=== PATIENT | male | born 1945 | race Caucasian/White ===

== ENCOUNTER 2018-03-25 05:45 | Inpatient (IN) ==
[2018-03-25 06:00] VITALS: BMI 30.2
[2018-03-25] MEDS ORDERED: BUPIVACAINE 0.5%/EPI 1:200,000 INJ 30ml SDV ONE (06:25)
[2018-03-25] MEDS: LR 1,000 ML IV SCH ×3 (06:30→12:55)
[2018-03-25] MEDS ORDERED: ONDANSETRON 4 MG/2 ML INJECTION IVP ONE (06:57)
[2018-03-25] MEDS ORDERED: SCOPOLAMINE 1mg/3 days PATCH (Eq. 1.5 Patch) TD ONE (06:57)
--- NOTE | 2018-03-25 07:01 | Anesthesia Preoperative Report ---
Anesthesia Preoperative Record - Date and Time Date: 03/25/18 Preoperative Diagnosis: Intestinal anastomotic leak/history colorectal CA NPO Since Date: 03/24/18 NPO Since Time: 00:00 Allergies/Adverse Reactions: Allergies Allergy/AdvReac Type Severity Reaction Status Date / Time No Known Allergies Allergy Verified 03/25/18 06:11 - Vital Signs Vital Signs: Temperature 98.4 F 03/25/18 05:58 Pulse Rate 91 03/25/18 06:19 Respiratory Rate 16 03/25/18 05:58 Blood Pressure 135/76 03/25/18 05:58 Pulse Oximetry 97 03/25/18 05:58 Height and Weight: Height 1.83 m Weight 101.3 kg Body Mass Index 30.2 - Medications Inpatient Medications: Current Medications Heparin Sodium (Porcine) (Heparin Sq) 5,000 units SQ O ONE Stop: 03/25/18 20:00 Ertapenem 1 g/ Sodium Chloride 100 mls @ 200 mls/hr IV PREOP ONE Stop: 03/25/18 20:28 Lactated Ringer's (Lactated Ringers) 1,000 mls @ 50 mls/hr IV .Q20H CRISSY Last Admin: 03/25/18 06:30 Dose: 50 mls/hr Lidocaine HCl (Xylocaine-Mpf 1% Vial) 2 mg ID O ONE Stop: 03/25/18 20:00 Last Admin: 03/25/18 06:30 Dose: 1 mg Ondansetron HCl (Zofran) 4 mg IVP O ONE Stop: 03/25/18 06:58 Last Admin: 03/25/18 06:59 Dose: 4 mg Scopolamine (Transderm-Scop Patch) 1 mg TD O ONE Stop: 03/25/18 06:58 Sodium Chloride (Iv Flush) 10 ml IV PRN PRN PRN Reason: Flushing Home Medications: Home Medications Medication Instructions Recorded Confirmed Type Diphenoxylate Hcl/Atrop Sulf 1 udtab PO PRN PRN #0 11/20/11 03/25/18 History (Lomotil) Advil (Ibuprofen) 200 mg tablet 200 mg PO TID PRN tab 12/05/17 03/25/18 History acetylcarnitine HCl 400 mg-alpha 1 cap PO BID 12/05/17 03/25/18 History lipoic acid 200 mg capsule Cranberry Fruit [Cranberry] 400 mg PO BID 12/13/17 03/25/18 History Pravastatin [Pravachol] 40 mg PO HS 12/13/17 03/25/18 History Timolol [Betimol] 5 ml EACH EYE DAILY 12/13/17 03/25/18 History Vitamin B Complex [Balanced B-50] 1 each PO DAILY 12/13/17 03/25/18 History erythromycin 500 mg tablet 1,000 mg PO TID #6 tab 02/12/18 03/25/18 Rx Acetaminophen [Tylenol] 1,000 mg PO TID 03/25/18 03/25/18 History Aspirin Chewable [ASA] 81 mg PO DAILY 03/25/18 03/25/18 History Is Patient on Beta Nathanael?: No - Medical History Respiratory: Reports: Pneumonia (as an ) Cardiovascular: Reports: Hypertension Gastrointestional: Reports: Other (COLON CANCER) Renal/Endocrine: Reports: Diabetes Mellitus Type 2, Thyroid Disease Other History: Reports: Chemotherapy (7 years ago), Cancer (COLON), Other ( radiation/7 years ago) - Surgical History Cardiac Surgeries/Treatments: Reports: Cardiac Catheterization (2011 DR CARRILLO) , Other (PAC PLACEMENT 2010) GI Surgery/Treatments: Reports: Colon Resection, Colonoscopy, Other (ILEOSTOMY TAKE DOWN 2010) Reproductive Surgery/Treatment: Reports: Vasectomy Anesthesia Reactions: None Hx Family Anesthesia Reaction: No History of Motion Sickness: No - Social History Smoking Status: Former smoker Hx Chewing Tobacco Use: No Second Hand Exposure: No Substance Use Type: does not use Alcohol Intake Frequency: does not drink - Pertinent Findings Laboratory: CBC and BMP 03/25/18 06:14 03/25/18 06:14 BMP 03/25/18 06:14 Sodium 141 Potassium 3.9 Chloride 104 Carbon Dioxide 23 BUN 22.0 H Creatinine 1.1 Glucose 135 H Calcium 9.6 Liver Function 03/25/18 Range/Units 06:14 Total Bilirubin 0.80 (0.20-1.30) MG/DL AST 27 (17-59) U/L ALT 22 (1-50) U/L Alkaline Phosphatase 87 (38-126) U/L Albumin 4.8 (3.5-5.0) g/dL EKG: Sinus Rhythm - Physical Exam Respiratory Exam: Present: lungs clear, bilateral breath sounds equal Cardiovascular Exam: Present: regular rate and rhythm - Airway Assessment Mallampati Score: II TMD: 3 Fingerbreadths Neck Extension: fair Overall Assessment: no airway concerns - ASA ASA Score: 3 - Plan Anesthesia: General TIVA, General Inhalation Gases - Discussion Discussion: Discussed risks/options/alternatives of anesthesia and questions answered. Patient consents. Nursing pain assessment noted. Present for Discussion: family member Attestation Statement: Prior to the delivery of any anesthetic medication, I examined the patient, developed the plan, obtained the patient's consent and discussed the risk and benefits of the procedure with the patient/guardian. - Additional Information Seen by Anesthesia: Yes
[2018-03-25] MEDS ORDERED: FentaNYL 250 MCG/5 ML INJECTION ONE (07:19)
[2018-03-25] MEDS ORDERED: VECURONIUM 10 MG/10 ML VIAL IV ONE (07:20)
[2018-03-25] MEDS ORDERED: SUCCINYLCHOLINE 20mg/mL 10mL INJECTION ONE (07:20)
[2018-03-25] MEDS ORDERED: PROPOFOL 20 ML ONE (07:20)
[2018-03-25] MEDS ORDERED: LACRI-LUBE EYE OINT 3.5gm ONE (07:22)
[2018-03-25] MEDS ORDERED: ONDANSETRON 4 MG/2 ML INJECTION ONE (07:45)
[2018-03-25] MEDS ORDERED: DEXAMETHASONE 4 MG/ML INJECTION ONE (07:45)
[2018-03-25] MEDS ORDERED: DiphenhydrAMINE 50 MG/ML INJECTION ONE (07:46)
[2018-03-25] MEDS ORDERED: BUPIVACAINE 0.5%/EPI 1:200,000 INJ 30ml SDV ID ONE (08:12)
[2018-03-25] MEDS ORDERED: HYDROMORPHONE 2 MG/ML INJECTION ONE (08:45)
[2018-03-25] MEDS ORDERED: METOCLOPRAMIDE 10mg/2ml INJECTION IVP PRN ×2 (10:29→13:45)
[2018-03-25] MEDS ORDERED: SUGAMMADEX 200mg/2ml INJECTION IVP ONE (10:32)
[2018-03-25] MEDS ORDERED: INDOCYANINE GREEN 25mg INJECTION IVP ONE (10:46)
[2018-03-25] MEDS ORDERED: INDOCYANINE GREEN 25mg INJECTION ONE (10:48)
--- NOTE | 2018-03-25 12:23 | General Surgery Procedure Note ---
Date of Procedure: 03/25/18 Surgeon: Shane Scanning Coordinator: Rahul Black APRN Postoperative Diagnosis: Colorarectal anastomosis leak with walled off abscess, fecal inicontinece, history of radiation to rectal area. Procedure: Robotic creation of end colostomy Estimated Blood Loss: See Anesthesia Record.
[2018-03-25] MEDS: HYDROMORPHONE 2 MG/ML INJECTION IVP PRN ×4 (12:33→13:08)
[2018-03-25] MEDS ORDERED: FUROSEMIDE 20 MG/2 ML INJECTION IVP ONE (12:46)
[2018-03-25] MEDS ORDERED: FUROSEMIDE 40 MG/4 ML INJECTION IVP ONE (12:49)
[2018-03-25] MEDS ORDERED: NS 1,000 ML IV SCH (13:45)
[2018-03-25] MEDS ORDERED: ONDANSETRON ODT 4 MG TABLET PO PRN (13:45)
[2018-03-25] MEDS ORDERED: ONDANSETRON 4 MG/2 ML INJECTION IVP PRN (13:45)
[2018-03-25] MEDS ORDERED: HYDROMORPHONE 2 MG/ML INJECTION IVP PRN (13:45)
[2018-03-25] MEDS ORDERED: ERTAPENEM 1 G in NS 100 ML IV SCH (13:45)
[2018-03-25] MEDS: MORPHINE PCA 30 MG/30 ML SYRINGE IV PRN (14:00)
--- NOTE | 2018-03-25 14:02 | Anesthesia Postoperative Note ---
- Date and Time Date: 03/25/18 Time: 14:00 - Status Patient Participated in Evaluation: Patient Participated in Person Vital Signs: Temperature 97.6 F 03/25/18 13:34 Pulse Rate 69 03/25/18 13:30 Respiratory Rate 03/25/18 13:30 Blood Pressure 157/74 H 03/25/18 13:30 Pulse Oximetry 97 03/25/18 13:30 Respiratory Function: Airway Patent, Regular Respirations Cardiovascular Function: Regular Pulse Mental Status: Alert and Oriented Pain Intensity: 4 Hydration: IV Infusing Nausea/Vomiting: None Complications During Recover: None Apparent - Follow-Up Instructions Instructions: Per Surgeon
--- NOTE | 2018-03-25 17:43 | Operative Note ---
DATE OF SURGERY 03/25/2018 PREOPERATIVE DIAGNOSES Placement of bilateral ureteral stents. POSTOPERATIVE DIAGNOSIS Placement of bilateral ureteral stents. PROCEDURE PERFORMED Cystoscopy with placement of bilateral ureteral stents. PRIMARY SURGEON Stephen Holley MD INDICATIONS FOR PROCEDURE This is a patient who is undergoing a colostomy today with Dr. Lynn. I was asked to place bilateral lighted ureteral stents in order to aid in identification of the ureters during surgery. DESCRIPTION OF PROCEDURE When I got into the room the patient was already in the dorsal lithotomy position and he was prepped and draped in the usual fashion. At this time a formal timeout was done. All persons in the room were in agreement. I began the procedure by introducing a rigid cystoscope inside the bladder. Upon entry into the bladder I identified the two UOs which was orthotopic in position. I began by placing a lighted ureteral stent in the left UO. This was done over a tensor wire. The stent was advanced to the appropriate wisam. The rigid cystoscope was then removed. I then reintroduced the cystoscope and placed the stent in the right UO in a similar fashion. The stent was also advanced to the two line wisam in a similar fashion. Once the two stents were in place I placed a 14-Fr Chaney in the bladder and tied it to the two stents using silk suture. The stents were then generated to produce the light. At this point care of the patient was handed back to Dr. Lynn. VISHAL
[2018-03-25] MEDS: NS with KCL 20 mEq 1,000 ML IV SCH (17:59)
[2018-03-25] MEDS: INSULIN REGULAR, HUMAN 100 UNIT/ML INJECTION SQ PRN (18:17)
--- NOTE | 2018-03-25 19:42 | Operative Note ---
DATE OF SERVICE 03/25/2018 SURGEON Diony Lynn MD REINFORCED CONCRETE INSPECTOR Rahul Black APRN PREOPERATIVE DIAGNOSIS Personal history for rectal cancer, status post low anterior resection with recent development of extraperitoneal anastomotic leak. POSTOPERATIVE DIAGNOSIS Personal history for rectal cancer, status post low anterior resection with recent development of extraperitoneal anastomotic leak. PROCEDURE Robotic-assisted laparoscopic partial colonic resection with creation of Rosalba's pouch and end colostomy. ANESTHESIA General endotracheal anesthesia. EBL/FLUIDS Please see chart. BRIEF HISTORY/INDICATIONS Mr. Hopper is a 72-year-old gentleman who several years ago I had performed a low anterior resection upon as a result of a rectal cancer. He did undergo chemoradiation. Unfortunately, the patient has developed a delayed extraperitoneal anastomotic leak. He has been experiencing fairly significant pain involving his sacrum and coccyx region. He also has been having increasing drainage from the anal verge. He did undergo a repeat colonoscopy recently and was found to have an anastomotic leak. Multiple biopsies were obtained from the site of this leak as well as from within the presacral space for one could see marked inflammatory changes. Fortunately, there was no evidence for any underlying neoplastic process/malignancy. Given the fact that this was an extraperitoneal leak we initially elected to be conservative in nature. The patient, however, continued to have increasing symptoms and therefore surgical intervention was recommended. The patient presents today to undergo fecal diversion with creation of a Rosalba's pouch and end colostomy. For completeness please refer to multiple notes included in the patient's chart as well as within his electronic medical record. FINDINGS Upon laparoscopy the liver was smooth and without nodularities. Peritoneal surfaces, small bowel, omentum which was visualized was within normal limits. One was able in a robotic-assisted laparoscopic approach to create a Rosalba's pouch just above his prior anastomotic leak and create an end colostomy. NARRATIVE OF PROCEDURE After informed consent was obtained the patient was brought to the operative suite and placed on the table in supine fashion. The abdomen was then prepped and draped in sterile fashion. Formal timeout was then completed. The patient did have lighted ureteral stents placed preoperatively. This portion of the procedure will be dictated by Dr. Holley. Once time out had been completed and the abdomen was prepped and draped in sterile fashion, attention then focused towards initiation of the surgery. First, 0.25% Marcaine with epinephrine was injected just below the left subcostal margin along the mid axillary line. A 4-5 mm incision was then made through the area of analgesia. A Veress needle was introduced through the incision and into the peritoneal cavity. Pneumoperitoneum was established to a patient pressure of 15 mmHg utilizing carbon dioxide. Next, a 12-mm camera port was then placed about 6 cm cephalad and about 4 cm to the right of midline within the right upper quadrant. First, 0.25% Marcaine with epinephrine was injected at this location. A 2-cm incision was then made through the area of analgesia. A 12- mm port was advanced through the incision through the abdominal wall and into the peritoneal cavity. Laparoscope was then placed through the port. There were some omental adhesions present along his prior midline incision. Fortunately, there was no bowel, however, adhered to the anterior abdominal wall. A 5-mm port was initially placed in the right lower quadrant as well as an 8-mm da Leslie port within the epigastric region. Each port site was preinjected with 0.25% Marcaine with epinephrine and again placed under direct visualization. Adhesions along his prior midline incision were then taken down bluntly as well as with sharp dissection laparoscopically. Next, the 5-mm port within the right lower quadrant was then replaced with a da Leslie stapler port. An additional 8-mm da Leslie port was then placed along the left lateral abdominal wall. A 5-mm AirSeal assist port was also placed within the right upper quadrant. Again, each port site was preinjected with 0.25% Marcaine with epinephrine and placed under direct visualization. The abdominal cavity was explored via the laparoscope. Findings were as noted above. The patient was then placed in Trendelenburg position and rotated towards his right. Attention was focused to the pelvis. Fortunately, to my surprise there were not significant adhesions of the small bowel into the pelvis. Small bowel was able to be delivered out of the pelvis. Next, the robot was then docked overlying the patient's right hip at a 45-degree angle. Robotic scissors were placed in robotic arm #1. Fenestrated bipolar grasper was placed in robotic arm #2. A Graptor was then placed within robotic arm #3 which was placed along the left lateral abdominal wall. First, the white line of Toldt was incised and the left colon was reflected medially. Unfortunately, it appeared that the ureteral stents had coiled back up within the bladder. One could see that the anatomic location of the bladder was fluorescing as well as the initial site of the right ureter. The left ureter, however, was not able to be visualized. There were some adhesions between the descending colon and the left lateral abdominal wall. These adhesions were carefully and meticulously taken down under direct visualization. Attention was then focused into the pelvis. Fortunately, the omentum had not become densely adhered to the presacral space below the sacral promontory. Most of this dissection was able to be performed utilizing da Leslie suction tip catheter. When adhesions were present they were taken down under direct visualization. During the process of dissection along the presacral space as one approached the end of the sacrum one could then see where the prior extraperitoneal leak had occurred. There was some stool and a small amount of purulent material within the presacral space down towards the anatomic location of the coccyx. There was a small opening that was created at this location that was only on the order of about 5 mm in diameter. Dissection was then carried down as close as possible to the prior anastomosis. Next, I elected to go ahead and divide the colon above the prior anastomosis. I made sure to not divide the mesentery to this segment of the colon. Dissection was carried out initially adjacent to the colon about 4-5 cm above the prior anastomosis. Utilizing a vessel sealer, the mesentery was then divided adjacent to the colon at this location. Again, the mesentery to this segment of colon was left intact to provide adequate blood supply. The colon was then completely dissected out circumferentially at this location. Dissection was not carried out within the anatomic location of the left or right ureter and dissection was divided through the mesentery, as stated above, adjacent to the colon. Next, a blue load was then placed within the da Leslie stapler and placed across the rectum several centimeters above the prior anastomosis. Colon was then transected at this location. Utilizing the vessel sealer, dissection was then begun to be carried out through the mesentery up towards the sacral promontory. Again, a small pedicle of the mesentery was left intact to provide adequate blood supply to the remaining portion of the descending colon above the prior anastomosis. The mesentery was begun to be divided coursing towards the origin of the inferior mesenteric artery, i.e., more mesentery was left intact adjacent to the remaining descending colon. The left colon had been reflected medially a good extent so this portion of the dissection was able to be carried out fairly easily. Again, the mesentery was not divided near the anatomic location of the left ureter and the mesentery was divided under direct visualization. The mesentery was then divided up to the anatomic location of the inferior mesenteric artery. JONATAN was left intact. Next , I asked for the circulating nurse to decrease the pneumoperitoneum to 5 mm so that the anterior abdominal wall would be more so within an anatomic location. The remaining descending colon was then able to be brought up to his proposed colostomy site without difficulty. Pneumoperitoneum was then reestablished up to a patient pressure of 15 mmHg utilizing carbon dioxide. Next, the patient was then given 3 mL of ICG. A few moments were allowed to elapse and then one could see the colon beginning to transilluminate quite well. Attention was first focused to the remaining descending colon that was left intact just above the prior anastomosis. This portion of the colon fluoresced quite well, i.e., there was adequate blood supply to the remaining portion of the descending colon. The initial 6-7 cm of colon where the mesentery had been divided adjacent to the colon did not fluoresce well. There was a sharp demarcation point, however, that one could see where the more proximal descending colon fluoresced quite well. A 3-0 Vicryl suture was obtained and placed at this sharp demarcation zone where the colon fluoresced quite well and then did not fluoresce beyond this point. Next, the colon at the location where this suture had been placed was grasped and was easily able to be brought up forth to the anterior abdominal wall without tension at the proposed site of his colostomy. Prior areas of dissection were inspected and found to be hemostatic in nature. Robot was then undocked. Next, an [facility] clamp was then placed within the left lower quadrant at the site where the ostomy nurse had marked out percutaneously preoperatively as the best site for his permanent colostomy. [facility] clamp was placed upon this location and retracted anteriorly. A 2-3 cm circular incision was then made beneath the [facility] clamp. Dissection was carried down to the deep subcuticular tissues to the underlying anterior rectus sheath. A small cruciate incision was then made upon the anterior rectus sheath. One could then see the longitudinal fibers of the rectus muscle. Hemostat was then placed into the rectus muscle and gently spread. Next, the posterior rectus sheath and peritoneum was then grasped and retracted anteriorly between the muscle fibers. Cautery was then utilized and access was then gained into the abdomen. Before undocking the robot I did have my social research assistant place a laparoscopic Pean through the assist port and upon the staple line of the remaining descending colon. The staple line of the descending colon was then able to be visualized beneath the newly created colostomy site. A Waldo clamp was then placed through the created colostomy site through the abdominal wall and the staple line was then grasped. The laparoscopic Waldo was then released and the colon was then brought forth up through the colostomy site. Next, the colon was continued to be brought forth up through the anterior abdominal wall so that the previously placed suture upon the descending colon at the site of demarcation of blood supply was about 6-7 cm beyond the anterior abdominal wall. Colon was then secured to the fascia by placing multiple single interrupted sutures of 0-Prolene. First, a small purchase of the adjacent fascia was obtained followed by a seromuscular purchase of the colon. A small portion of the cruciate incision was also closed with 0-Vicryl along the 12 o'clock and 6 o'clock positions of the cruciate incision. A small purchase of the mesentery as well as a seromuscular purchase of the colon was obtained. Colon was well secured at this location. Next, the pneumoperitoneum was reestablished. Laparoscope was then reinserted. I did not re-dock the robot at this time. Next, two 18-Tamazight drains were then placed into the peritoneal cavity. One drain was placed through the stapler port within the right lower quadrant and the second drain was placed through the 8-mm port site along the left lateral abdominal wall. Both drains were placed in the pelvis. One drain was placed posteriorly along the presacral space next to where the small opening had been created into the site of the extraperitoneal leak. The second drain was placed anteriorly within the pelvis and a portion was also placed within the presacral space. Next, the ports were then removed under direct visualization. The pneumoperitoneum was released. The fascia at the camera port site was closed in a [id number] fashion with 0-Vicryl. The fascia at the stapler port site within the right lower quadrant was also closed in a [id number] fashion with 0-Vicryl. A small portion of the fascia was left open where the drain exited. Next, all skin incisions were then closed with jesus. Both drains were secured to the anterior abdominal wall with 2-0 Prolene. A sterile towel was then placed overlying the incision sites. Attention was directed towards maturation of the colostomy. [facility] clamp was placed just proximal to the previously placed 3-0 Vicryl suture upon the colon that extended beyond the skin level at the colostomy site. Colon was then transected just proximal to the [facility] clamp. The transected end of the colon did bleed fairly briskly, again indicative of adequate blood supply. Next, four single interrupted sutures of 3-0 Vicryl were placed at the 12 o'clock, 3 o'clock, 6 o'clock and 9 o'clock positions. First, a full thickness purchase of the transected end of the colon was obtained followed by a seromuscular purchase of the colon about 5-6 cm proximal to the transected end of the colon followed by a subcuticular purchase of the adjacent skin level. Each suture was then tied securely, resulting in an everted colostomy. Next, each suture that had been placed was then bisected by placing an additional single interrupted suture of 3-0 Vicryl in a similar fashion. This resulted in a completed end colostomy which was nicely everted. The 6-8 cm of colon that was transected was submitted for pathologic evaluation. Colostomy appliance was then placed overlying the colostomy. The patient was awakened from his anesthetic and sent back to the recovery room once deemed in stable condition. Additionally, it should be noted that Rahul Black APRN, was present throughout the entire case and played a pivotal role in providing assistance and exposure during the course of the procedure. VISHAL
[2018-03-25] MEDS ORDERED: LIDOCAINE 1% (10mg/ml) 2mL INJ PF SDV ID ONE (19:59)
[2018-03-25] MEDS ORDERED: HEPARIN SUB-Q 5,000units/0.5ml INJECTION SQ ONE (19:59)
[2018-03-25] MEDS ORDERED: ERTAPENEM 1 G in NS 100 ML IV ONE (19:59)
[2018-03-25] MEDS ORDERED: SALINE FLUSH 10ml SYRINGE IV PRN (19:59)
[2018-03-26] MEDS: NS with KCL 20 mEq 1,000 ML IV SCH ×3 (02:20→20:42)
[2018-03-26] MEDS: ERTAPENEM 1 G in NS 100 ML IV SCH (06:10)
[2018-03-26] MEDS: KETOROLAC 15 MG/ML INJECTION IVP PRN ×3 (07:22→20:20)
--- NOTE | 2018-03-26 07:33 | General Surgery Progress Note ---
Subjective Patient reports: pain is less (in the anorectal area) Narrative: Denies nausea. Pain mostly in area of new colostomy is controlled pretty well with Morphine DRY CHAIN WORKER. He has noticed scrotal swelling, states it does not bother him. This is from the CO2 used to inflate the belly and will go away on it's own. Urine output 40+/hr and is now clear yellow. - Vital Signs Last Vital Signs Temp 98.1 F 03/25/18 23:00 Pulse 52 L 03/26/18 06:00 Resp 17 03/26/18 06:00 BP 109/53 03/26/18 06:00 Pulse Ox 97 03/26/18 06:00 - Laboratory Result Diagrams: 03/26/18 03:42 03/26/18 03:42 - Abnormal Exam Abdominal: hypoactive bowel sounds (no flatus in colostomy bag) Male: other (generlized swelling of scrotum from abd insuflation during surgery) - Normal Exam General: awake, alert, oriented, no acute distress Cardiovascular: regular rhythm, regular rate Respiratory: clear bilaterally, no labored breathing Abdominal: appropriately tender, incision(s) (bandaids in tact without visible drainage), other (JPx2 with serosangenous drainage) Psychiatric: normal affect Neurological: CN 2-12 grossly intact Wound/Stoma/Drain Assessment - Stoma Assessment Left Lower Abdomen Bowel Diversion Stoma Type: Colostomy Bowel Diversion Stoma Appearance: Beefy Red, Protruding (slightly with a slight indentation on the caudad rim, this was built up with a stoma ring under the appliance), Oval Collection Device: Drainable Pouch, Two-piece (large) Assessment and Plan (1) Status post colostomy Current Visit: Yes Status: Acute (2) Diabetes type 2, controlled Current Visit: Yes Status: Chronic Qualifiers: Diabetes mellitus shelter insulin use: without adjunct faculty for medical terminology use Diabetes mellitus complication status: without complication Qualified Code(s): E11.9 - Type 2 diabetes mellitus without complications (3) Intra-abdominal abscess Current Visit: Yes Status: Chronic (4) Meniere's disease Current Visit: Yes Status: Chronic (5) Colorectal cancer Current Visit: Yes Status: Acute Plan: Post robotic assisted creation of end colostomy POD #1 Doing well, VSS Urine output good 40+/hr Pain controlled with Morphine DRY CHAIN WORKER and Toradol Colostomy beefy, without flatus is bag, only rare bowel sounds. Continue current care, will advance diet as bowel activity returns. Hospital Course Summary Disclaimer: The visit summary below is not to be considered part of the above Progress Note. Hospital Course: 03/26/2018 Post robotic assisted creation of end colostomy POD #1 Doing well, VSS Urine output good 40+/hr Pain controlled with Morphine DRY CHAIN WORKER and Toradol Colostomy beefy, without flatus is bag, only rare bowel sounds. Continue current care, will advance diet as bowel activity returns./
[2018-03-26] MEDS ORDERED: TIMOLOL 0.5% EYE DROPS 5 ML EACH EYE SCH (09:00)
[2018-03-26] MEDS ORDERED: ENOXAPARIN 40 MG/0.4 ML INJECTION SQ SCH (09:00)
[2018-03-26] MEDS: INSULIN REGULAR, HUMAN 100 UNIT/ML INJECTION SQ PRN ×2 (12:16→18:10)
--- NOTE | 2018-03-26 19:35 | Progress Note ---
DATE OF SERVICE 03/26/2018 FINDINGS Mr. Hopper was seen this evening on rounds. Overall he was without significant complaints. Denied any element of nausea or vomiting. PHYSICAL EXAM VITAL SIGNS: Afebrile, normotensive. Please refer to EMR. The patient's urine output has been marginal. He is in the process of being bolused. ABDOMEN: Soft, nontender. Colostomy is pink and viable. No stool or air noted within colostomy appliance. ANESTHESIA 73-year-old gentleman status post partial colonic resection with creation of Rosalba's pouch and end colostomy secondary to delayed anastomotic leak. Patient overall doing well. PLAN Continue with current care. Will give full liquids. Will continue to monitor urinary output closely. The patient will likely be transferred out to surgical floor tomorrow. Overall pleased with the patient's progress. MTDD
[2018-03-26] MEDS: TIMOLOL 0.5% EYE DROPS 5 ML EACH EYE SCH (20:42)
[2018-03-27] MEDS: INSULIN REGULAR, HUMAN 100 UNIT/ML INJECTION SQ PRN (00:09)
[2018-03-27] MEDS: NS with KCL 20 mEq 1,000 ML IV SCH ×4 (04:50→22:26)
[2018-03-27] MEDS: ERTAPENEM 1 G in NS 100 ML IV SCH (05:43)
[2018-03-27] MEDS: KETOROLAC 15 MG/ML INJECTION IVP PRN ×3 (08:29→22:26)
[2018-03-27] MEDS: TIMOLOL 0.5% EYE DROPS 5 ML EACH EYE SCH ×2 (08:30→20:18)
--- NOTE | 2018-03-27 08:31 | General Surgery Progress Note ---
Subjective Patient reports: feels better, pain is less, tolerating liquids well (fulls), flatus (small amount in the colostomy bag), afebrile Narrative: Urine output has picked up after a fluid bolus of 500 NS yesterday early evening. - Vital Signs Last Vital Signs Temp 97.9 F 03/27/18 04:00 Pulse 80 03/27/18 06:00 Resp 15 03/27/18 07:00 BP 119/58 03/27/18 06:00 Pulse Ox 96 03/27/18 06:00 - Laboratory Result Diagrams: 03/27/18 03:57 03/27/18 03:57 - Normal Exam General: awake, alert, oriented, no acute distress Cardiovascular: regular rhythm, regular rate Respiratory: clear bilaterally, no labored breathing Abdominal: soft, appropriately tender, incision(s) (Bandaids in tact, to bleeding, ecchymosis, erythea) Male: other (clear yellow urine in pulliam) Psychiatric: normal affect Assessment and Plan (1) Status post colostomy Current Visit: Yes Status: Acute (2) Diabetes type 2, controlled Current Visit: Yes Status: Chronic Qualifiers: Diabetes mellitus assisted insulin use: without assisted use Diabetes mellitus complication status: without complication Qualified Code(s): E11.9 - Type 2 diabetes mellitus without complications (3) Intra-abdominal abscess Current Visit: Yes Status: Chronic (4) Meniere's disease Current Visit: Yes Status: Chronic (5) Colorectal cancer Current Visit: Yes Status: Acute (6) Oliguria Current Visit: Yes Status: Resolved Plan: POD #2 doing well, ate apple sauce last night and has cereal ordered for breakfast. The colostomy has been emptied of flatus once. VSS, HB has dropped to 8.8, will repeat HGB at 4pm and HOLD Lovenox for 1-2 days. Hospital Course Summary Disclaimer: The visit summary below is not to be considered part of the above Progress Note. Hospital Course: 03/26/2018 Post robotic assisted creation of end colostomy POD #1 Doing well, VSS Urine output good 40+/hr Pain controlled with Morphine PRODUCT DISTRIBUTION SPECIALIST and Toradol Colostomy beefy, without flatus is bag, only rare bowel sounds. Continue current care, will advance diet as bowel activity returns./
--- NOTE | 2018-03-27 12:32 | Progress Note ---
DATE 03/27/2018 FINDINGS Mr. Hopper was seen this morning on rounds. He is without complaints. He is tolerating full liquids without difficulty. OBJECTIVE VITALS: Afebrile. Normotensive. Please refer to EMR. ABDOMEN: Soft. Minimal incisional tenderness present. Colostomy is pink and viable. No air or stool within colostomy at this time. LABORATORY/RADIOGRAPHIC REVIEW Patient had a CBC today that was unremarkable. Hemoglobin is slightly down at 8.8. White count is down at 5.3. BMP obtained and found to be without marked abnormalities. ASSESSMENT 73-year-old gentleman status post partial colonic resection with creation of Rosalba's pouch and end colostomy secondary to delayed anastomotic leak following low anterior resection. Overall patient doing well. PLAN Transfer to floor. Continue with current care. VISHAL
[2018-03-27] MEDS: MORPHINE PCA 30 MG/30 ML SYRINGE IV PRN (15:19)
[2018-03-28] MEDS: ERTAPENEM 1 G in NS 100 ML IV SCH (05:27)
[2018-03-28] MEDS: NS with KCL 20 mEq 1,000 ML IV SCH ×2 (07:56→10:15)
[2018-03-28] MEDS: HYDROCODONE/APAP 5mg/325mg TABLET PO PRN ×4 (07:56→20:27)
[2018-03-28] MEDS ORDERED: Bisacodyl EC TAB 5 MG TABLET PO ONE (08:42)
[2018-03-28] MEDS: TIMOLOL 0.5% EYE DROPS 5 ML EACH EYE SCH ×2 (10:16→20:16)
--- NOTE | 2018-03-28 11:16 | Progress Note ---
DATE 03/28/2018 FINDINGS Mr. Hopper was seen this morning on rounds. He was without complaints. He denies any element of nausea or vomiting. He has been having minimal incisional tenderness. OBJECTIVE VITALS: Afebrile. Normotensive. ABDOMEN: Soft, nontender. Still patient without air or stool within his colostomy. LABORATORY/RADIOGRAPHIC EVALUATION Patient had a repeat CBC today and his hemoglobin is stable at 8.7. White count is stable at 4.4. BMP obtained and found to be without marked abnormalities. ASSESSMENT 73-year-old gentleman status post partial colonic resection with creation of Rosalba's pouch and end colostomy secondary to delayed anastomotic leak, patient doing well. PLAN Continue with current care. Will go ahead and give some Dulcolax tablets today in an attempt to stimulate bowel activity. Will go ahead and advance his diet to regular. I am pleased with patient's progress at this time. [facility]
--- NOTE | 2018-03-28 15:34 | Wound Care Progress Note ---
Wound Center Progress Note: Pt seen for ostomy consultation. Pt resting in chair, at bedside. Reports his LLQ is "tender." On 03/25/18 pt had robotic assisted laparoscopic partial colonic resection with creation of Hartmanns pouch with end colostomy, secondary to delayed anastomotic leak following previous LAR per Dr. Lynn. Pt was seen at [facility] 03/22/18 for stomal marking. Pt has had a temporary ileostomy in the past, so he is knowledgeable about stomas and pouching systems. Pt signed privacy statement giving permission to be signed up for [employer] program. Ostomy education was started at appointment for stomal marking and continued today in the hospital. Education given concerning: diet, activity, showering, when and how to empty pouch, cleaning pouch and peristomal skin, how to cut wafer, application of wafer and pouch, and how to use a barrier ring. Pt used return demonstration using ostomy stoma practice board in cutting wafer, applying wafer, and pouch. Will revisit with pt tomorrow to have him place a new pouching system with assistance. LLQ colostomy: stoma is pink, moist, upright, dried bloody drainage around sutures at base of stoma. Pouch has scant serosanguineous drainage. Pt is wearing a 2pc drainable Katharine pouching system. Peristomal skin: not assessed at this time. Products pt will need: Katharine flat wafer # [id number]. [place] drainable pouch # [id number]. Slim 2" barrier ring # [id number]. Pt will have free supplies sent to his house thru [employer] program.
[2018-03-28] MEDS: INSULIN REGULAR, HUMAN 100 UNIT/ML INJECTION SQ PRN (20:16)
[2018-03-28 20:28] VITALS: RESP 16
[2018-03-29] MEDS: ERTAPENEM 1 G in NS 100 ML IV SCH (05:05)
[2018-03-29] MEDS: HYDROCODONE/APAP 5mg/325mg TABLET PO PRN ×2 (05:06→12:27)
--- NOTE | 2018-03-29 08:29 | General Surgery Progress Note ---
Subjective Patient reports: feels better, pain is less ([place] has been helpful), tolerating a regular diet, voiding w/o difficulty, bowel movement (larage), afebrile Narrative: He is having some discharge from the rectum, mostly semi-clear liquid. States he has an urge to have a BM and can "get to the bathroom" most of the time. The amount and frequency of rectal evacuation has already started to decline. Denies chest pain, SOA. - Vital Signs Last Vital Signs Temp 97.5 F 03/29/18 07:45 Pulse 70 03/29/18 07:45 Resp 16 03/29/18 07:45 BP 121/69 03/29/18 07:45 Pulse Ox 94 03/29/18 07:45 - Laboratory Result Diagrams: 03/29/18 03:47 03/29/18 03:47 - Normal Exam General: awake, alert, oriented, no acute distress Abdominal: BS normo active x4, soft, appropriately tender, incision(s) (jesus in tact, no erythema, ecchymosis.), other (Left JOSH with nearly clear serous fluid. Right JOSH with serosangeinous fluid) Psychiatric: normal affect (perhaps a little flat, not eager to get home) Neurological: CN 2-12 grossly intact Assessment and Plan (1) Status post colostomy Status: Chronic (2) Diabetes type 2, controlled Status: Chronic Qualifiers: Diabetes mellitus longterm insulin use: without longterm use Diabetes mellitus complication status: without complication Qualified Code(s): E11.9 - Type 2 diabetes mellitus without complications (3) Intra-abdominal abscess Status: Chronic (4) Meniere's disease Status: Chronic (5) Colorectal cancer Status: Acute (6) Oliguria Status: Resolved Plan: Labs are unremarkable. Had nice large soft BM during the night. Eating regular diet. IVF DC'd at HS yesterday and he slept better without the IV pump noise and tubing. Plan DC to home this afternoon if he continues to do well. F/U April 09 for staple removal. Hospital Course Summary Disclaimer: The visit summary below is not to be considered part of the above Progress Note. Hospital Course: 03/26/2018 Post robotic assisted creation of end colostomy POD #1 Doing well, VSS Urine output good 40+/hr Pain controlled with Morphine COMPUTER SECURITY COORDINATOR and Toradol Colostomy beefy, without flatus is bag, only rare bowel sounds. Continue current care, will advance diet as bowel activity returns.03/27 Post robotic assisted creation of end colostomy POD #1 Doing well, VSS Urine output good 40+/hr Pain controlled with Morphine COMPUTER SECURITY COORDINATOR and Toradol Colostomy beefy, without flatus is bag, only rare bowel sounds. Continue current care, will advance diet as bowel activity returns.03/29 Labs are unremarkable. Had nice large soft BM during the night. Eating regular diet. IVF DC'd at HS yesterday and he slept better without the IV pump noise and tubing. Plan DC to home this afternoon if he continues to do well. F/U April 09 for staple removal.
[2018-03-29] MEDS: TIMOLOL 0.5% EYE DROPS 5 ML EACH EYE SCH (08:47)
[2018-03-29 11:55] VITALS: PULSE 77; TEMP 98.3
--- NOTE | 2018-03-29 13:18 | Wound Care Progress Note ---
Wound Center Progress Note: Pt seen for ostomy follow up. Pt lying in bed, rates abdominal pain 5/10. RN giving pain medication. LLQ colostomy: Colostomy pouching system intact with no leaks. Small brown semi-liquid stool in pouch. Pt prefers to leave pouching system on and not change it at this time. Education given r/t: skin care, crusting for denuded skin, when and how to change pouch, how to clean pouch, bathing, and how to order ostomy supplies. All questions answered. Informed pt if he had any problems he can go to the [employer] website, talk to a plastic products sales representative at [place], and or call the Wound Clinic. Pt had earlier inquires concerning irrigation of colostomy; informed him to call wound clinic in a few months if he is still interested, and I wound see him to teach him this technique.
[2018-03-29 17:20] VITALS: BP 135/78; O2SAT 98
--- NOTE | 2018-03-29 17:51 | Progress Note ---
DATE OF SERVICE 03/29/2018 FINDINGS Mr. Hopper was seen earlier today on rounds. He is without complaints. He has now had quite a bit of stool out through his colostomy. PHYSICAL EXAM VITAL SIGNS: Afebrile, normotensive. ABDOMEN: Soft, nontender. Incisions are clean, dry and intact. ASSESSMENT 73-year-old gentleman status post partial colonic resection with creation of Rosalba's pouch and end colostomy secondary to delayed anastomotic leak. Patient currently doing well. PLAN I did review his pathology report today which returned revealing a benign segment of colon with focal recent hemorrhage and patchy inflammation. There was no tumor that could be identified within the segment submitted. The patient is tolerating a regular diet and his bowel activity has resumed. I do believe he could be discharged to home later today. VISHAL
[2018-03-30] MEDS ORDERED: POLYETHYL GLYCOL 3350 17gm PACKET PO SCH (09:00)
--- NOTE | 2018-04-01 14:34 | Discharge Summary ---
Discharge Information Date of admission: 03/25/18 05:45 Attending Physician: Diony Lynn MD Primary care physician: Óscar Rodas MD Consults: 03/25/18 05:59 Consult to Anesthesiology [CONS] Routine Reason For Exam: anesthesia 03/27/18 13:09 Wound Vein Clinic Consult [CONS] Routine Reason for consultation: colostomy care and supplies - Discharge Diagnosis (1) Status post colostomy Status: Chronic (2) Diabetes type 2, controlled Status: Chronic (3) Intra-abdominal abscess Status: Chronic (4) Meniere's disease Status: Chronic (5) Colorectal cancer Status: Acute (6) Oliguria Status: Resolved - Procedures Procedures: DATE OF SURGERY 03/25/2018 PREOPERATIVE DIAGNOSES Placement of bilateral ureteral stents. POSTOPERATIVE DIAGNOSIS Placement of bilateral ureteral stents. PROCEDURE PERFORMED Cystoscopy with placement of bilateral ureteral stents. DATE OF SERVICE 03/25/2018 SURGEON Diony Lynn MD WAGE CONCILIATOR Rahul Black APRN PREOPERATIVE DIAGNOSIS Personal history for rectal cancer, status post low anterior resection with recent development of extraperitoneal anastomotic leak. POSTOPERATIVE DIAGNOSIS Personal history for rectal cancer, status post low anterior resection with recent development of extraperitoneal anastomotic leak. PROCEDURE Robotic-assisted laparoscopic partial colonic resection with creation of Rosalba's pouch and end colostomy. - Laboratory Labs: 03/29/18 03:47 03/29/18 03:47 - Pathology Segment of colon, No tumor or atypia seen. - History of Present Illness HPI: BRIEF HISTORY/INDICATIONS Mr. Hopper is a 72-year-old gentleman who several years ago I had performed a low anterior resection upon as a result of a rectal cancer. He did undergo chemoradiation. Unfortunately, the patient has developed a delayed extraperitoneal anastomotic leak. He has been experiencing fairly significant pain involving his sacrum and coccyx region. He also has been having increasing drainage from the anal verge. He did undergo a repeat colonoscopy recently and was found to have an anastomotic leak. Multiple biopsies were obtained from the site of this leak as well as from within the presacral space for one could see marked inflammatory changes. Fortunately, there was no evidence for any underlying neoplastic process/malignancy. Given the fact that this was an extraperitoneal leak we initially elected to be conservative in nature. The patient, however, continued to have increasing symptoms and therefore surgical intervention was recommended. The patient presents today to undergo fecal diversion with creation of a Rosalba's pouch and end colostomy. Hospital Course This is a general summary of the patient's hospital course. For more details refer to the complete medical record. Hospital course: 03/26/2018 Post robotic assisted creation of end colostomy POD #1 Doing well, VSS Urine output good 40+/hr Pain controlled with Morphine RETAIL MERCHANDISING SPECIALIST and Toradol Colostomy beefy, without flatus is bag, only rare bowel sounds. Continue current care, will advance diet as bowel activity returns.03/27 Post robotic assisted creation of end colostomy POD #1 Doing well, VSS Urine output good 40+/hr Pain controlled with Morphine RETAIL MERCHANDISING SPECIALIST and Toradol Colostomy beefy, without flatus is bag, only rare bowel sounds. Continue current care, will advance diet as bowel activity returns.03/29 Labs are unremarkable. Had nice large soft BM during the night. Eating regular diet. IVF DC'd at HS yesterday and he slept better without the IV pump noise and tubing. Plan DC to home this afternoon if he continues to do well. F/U April 09 for staple removal. Time spent with patient: 25 - 35 minutes Resuscitation Status: Full Code Discharge Plan - Med Rec/Dispo Referrals/Follow Up: Marce Black APRN [Advanced Practice Nurse] - 04/09/18 11:00 am (staple removal) Kristina Instructions: Colostomy Care (DC), [place]-Walters Drain Care (DC), Exploratory Laparotomy (DC), Colostomy Creation (DC) Prescriptions: New Hydrocodone/APAP 5/325 [[place] 5/325] 1 tab PO Q4H PRN #25 tab PRN Reason: Pain Ondansetron Odt [Zofran Odt Tablet] 4 mg PO Q4H PRN #6 tab PRN Reason: Nausea &/Or Vomiting PEG 3350 17gm PACKET [Miralax] 17 gm PO DAILY packet Continue Pravastatin [Pravachol] 40 mg PO HS Timolol [Betimol] 5 ml EACH EYE DAILY Vitamin B Complex [Balanced B-50] 1 each PO DAILY Cranberry Fruit [Cranberry] 400 mg PO BID Aspirin Chewable [ASA] 81 mg PO DAILY Acetaminophen [Tylenol] 1,000 mg PO TID Diphenoxylate Hcl/Atrop Sulf (Lomotil) 1 udtab PO PRN PRN #0 PRN Reason: Diarrhea Advil (Ibuprofen) 200 mg tablet 200 mg PO TID PRN tab PRN Reason: pain Discontinued erythromycin 500 mg tablet 1,000 mg PO TID #6 tab No Action acetylcarnitine HCl 400 mg-alpha lipoic acid 200 mg capsule 1 cap PO BID - Disposition [facility] - Dismissal Complete Discharge Instructions are:: Complete
== END 2018-03-29 16:55 | disposition home health service (06) | DRG 329 ==
LOC: NMC.PERIOP 05:45 → CCU 13:41 → SRG 03-27 13:25
PROVIDERS: ADMIT Surgery; ATTEND Surgery